=== PATIENT | female | born 1995 | race Two or more races ===

== ENCOUNTER → 2020-11-29 | Day surgery (SDC) | payer OTHER ==
[~2020-11-29] MED LIST: ESTARYLLA1 EACH PO
== END | disposition home or self-care (01) ==
LOC: ADM 11-22 08:15 → CIR.AMB 07:00
PROVIDERS: ATTEND Student in an Organized Health Care Education/Training Program
DX: N94.4 Primary dysmenorrhea (principal); R10.2 Pelvic and perineal pain; Z20.828 Contact with and (suspected) exposure to other viral communicable diseases

== ENCOUNTER 2022-06-23 13:14 | Outpatient (CLI) | payer OTHER | END 2022-06-23 14:35 | disposition home or self-care (01) | LOC: PRENATAL 13:14 | PROVIDERS: ATTEND Obstetrics & Gynecology Maternal & Fetal Medicine | DX: O35.0XX0 Maternal care for (suspected) central nervous system malformation in fetus, not applicable or unspecified (principal); O35.3XX0 Maternal care for (suspected) damage to fetus from viral disease in mother, not applicable or unspecified; Z91.013 Allergy to seafood; Z3A.23 23 weeks gestation of pregnancy ==

== ENCOUNTER 2022-08-07 14:00 | Outpatient (CLI) | payer OTHER | END 2022-08-07 15:00 | disposition home or self-care (01) | LOC: PRENATAL 14:00 | PROVIDERS: ATTEND Obstetrics & Gynecology Maternal & Fetal Medicine | DX: Z31.9 Encounter for procreative management, unspecified (principal) ==

== ENCOUNTER 2022-09-26 17:05 | Outpatient (CLI) | payer OTHER | END 2022-09-26 18:42 | disposition home or self-care (01) | LOC: NST 17:05 | PROVIDERS: ATTEND Obstetrics & Gynecology | DX: Z34.83 Encounter for supervision of other normal pregnancy, third trimester (principal) ==

== ENCOUNTER 2022-09-29 01:23 | Inpatient (IN) | payer OTHER ==
[~2022-09-29] VITALS: Ht 154.9 cm; Wt 65.8 kg
[2022-09-29] MEDS ORDERED: HUMULIN N100 UNIT/2 SUBCUTANEO (02:17)
[2022-09-29] MEDS ORDERED: PRENATAL TABLE1 EAC1 PO (02:18)
[2022-09-29] MEDS ORDERED: FOLIC ACID20 MG PO (02:18)
== END 2022-10-01 18:13 | disposition home or self-care (01) | DRG 807 ==
LOC: OBS/DEL 01:23 → LDR 11:02 → OB/GYN 19:37
PROVIDERS: ADMIT Student in an Organized Health Care Education/Training Program; ATTEND Student in an Organized Health Care Education/Training Program
PROC: 10E0XZZ Delivery of Products of Conception, External Approach (ICD-10-PCS; principal; 2022-09-29)
PROC: 4A1HXCZ Monitoring of Products of Conception, Cardiac Rate, External Approach (ICD-10-PCS; 2022-09-29)
PROC: BY4FZZZ Ultrasonography of Third Trimester, Single Fetus (ICD-10-PCS; 2022-09-29)
DX: O24.424 Gestational diabetes mellitus in childbirth, insulin controlled (principal); Z37.0 Single live birth; O26.843 Uterine size-date discrepancy, third trimester; O36.8130 Decreased fetal movements, third trimester, not applicable or unspecified; Z20.822 Contact with and (suspected) exposure to COVID-19; Z3A.37 37 weeks gestation of pregnancy